=== PATIENT | male | born 1945 | race Caucasian/White ===

== ENCOUNTER 2018-05-27 06:19 | Emergency (ER) | payer MEDICARE, OTHER ==
--- NOTE | 2018-05-27 06:56 | EDM.PDOC ---
<Wendy Torres - Last Filed: 05/27/18 06:51> ED HPI GENERAL MEDICAL PROBLEM - General Chief Complaint: Gastrointestinal Problem Stated Complaint: UNABLE TO USE THE BATHROOM X4 DAYS [phone] Time Seen by Provider: 05/27/18 06:45 Source of Information: Reports: Patient History Limitations: Reports: No Limitations - History of Present Illness INITIAL COMMENTS - FREE TEXT/NARRATIVE: C/O frequent urination in small amounts, No BM since last Wednesday. Mild discomfort and bloating. no hx constipation. Hx back injury lumbar 2008, intermittent sharp pain johnathan lumbar area but no change from usual. No fever chills. Decreased appetite, no vomiting. Lower Back Pain Score (Numeric/FACES): 4 - Related Data Allergies Allergy/AdvReac Type Severity Reaction Status Date / Time bacitracin Allergy Blisters Verified 05/27/18 06:26 neomycin Allergy Blisters Verified 05/27/18 06:26 [From Neosporin ([id number])] polymyxin B Allergy Blisters Verified 05/27/18 06:26 [From Neosporin ([id number])] [id number]-Gzw Reductase Allergy Leg Cramps Verified 05/27/18 06:26 Inhibitor Home Meds: Home Meds Levothyroxine 75 mcg PO ACBREAKFAST 05/27/18 [History] Past Medical History Other Cardiovascular History: stents in arteries in legs Musculoskeletal History: Reports: Back Pain, Chronic - Past Surgical History Musculoskeletal Surgical History: Reports: Other (See Below) Other Musculoskeletal Surgeries/Procedures:: back surgery Social & Family History - Tobacco Use Smoking Status *Q: Never Smoker Second Hand Smoke Exposure: No - Recreational Drug Use Recreational Drug Use: No ED ROS GENERAL - Review of Systems Review Of Systems: ROS reveals no pertinent complaints other than HPI. ED EXAM, GI/ABD - Physical Exam Exam: See Below Exam Limited By: No Limitations General Appearance: Alert, No Apparent Distress, Anxious Ears: Normal External Exam Nose: Normal Inspection Throat/Mouth: Normal Voice Head: Atraumatic, Normocephalic Neck: Full Range of Motion Respiratory/Chest: No Respiratory Distress, Lungs Clear, Normal Breath Sounds Cardiovascular: Normal Peripheral Pulses, Regular Rate, Rhythm GI/Abdominal Exam: Tender (mild ROQ with palpation), Abnormal Bowel Sounds ( hypoactive). No: Guarding Back Exam: Normal Inspection, Full Range of Motion, Paraspinal Tenderness. No: Vertebral Tenderness Extremities: Normal Inspection, Non-Tender Neurological: Alert, Oriented, Normal Cognition Psychiatric: Anxious Skin Exam: Warm, Dry Course - Vital Signs Last Recorded V/S: Last Vital Signs Temp 37.7 C 05/27/18 06:22 Pulse 110 H 05/27/18 06:22 Resp 18 05/27/18 06:22 BP 181/77 H 05/27/18 06:22 Pulse Ox 100 05/27/18 06:22 - Orders/Labs/Meds Orders: Active Orders 24 hr Category Date Time Status Enema [RC] ASDIRECTED Care 05/27/18 07:33 Ordered KUB [Abdomen 1V Flat] [CR] Urgent Exams 05/27/18 06:45 Taken CULTURE URINE [RM] Stat Lab 05/27/18 07:56 Ordered Labs: Laboratory Tests 05/27/18 Range/Units 06:34 Urine Color Straw (YELLOW) Urine Appearance Slightly cloudy (CLEAR) Urine pH 5.5 (5.0-9.0) Ur Specific [place] 1.020 (1.005-1.030) Urine Protein Trace H (NEGATIVE) Urine Glucose (UA) Negative (NEGATIVE) Urine Ketones Trace H (NEGATIVE) Urine Occult Blood Negative (NEGATIVE) Urine Nitrite Negative (NEGATIVE) Urine Bilirubin Small H (NEGATIVE) Urine Urobilinogen 0.2 (0.2-1.0) mg/dL Ur Leukocyte Esterase Small H (NEGATIVE) Urine RBC 0-5 /HPF Urine WBC 40-50 H (0-5/HPF) /HPF Ur Epithelial Cells Few /HPF Amorphous Sediment Few (0/HPF) /HPF Urine Bacteria Moderate H (0-FEW/HPF) /HPF Hyaline Casts Few H /LPF Urine Mucus Moderate H /LPF Meds: Medications Discontinued Medications Generic Name Dose Route Start Last Admin Trade Name Freq PRN Reason Stop Dose Admin Amoxicillin/Clavulanate Potassium 1 tab 05/27/18 07:34 05/27/18 07:38 Augmentin 500 Mg\125 Mg PO 05/27/18 07:35 1 tab ONETIME ONE Administration Departure - Departure Disposition: Home, Self-Care 01 Clinical Impression: UTI (urinary tract infection) Qualifiers: Urinary tract infection type: site unspecified Hematuria presence: without hematuria Qualified Code(s): N39.0 - Urinary tract infection, site not specified Constipation Qualifiers: Constipation type: unspecified constipation type Qualified Code(s): K59.00 - Constipation, unspecified - Discharge Information Instructions: Constipation, Adult, Uvmn-[id number], Urinary Tract Infection, Adult , [id number] Forms: ED Department Discharge Care Plan Goals: The patient was advised of the examination, lab and x-ray results during the visit. The patient was given an enema and an oral dose of Augmentin while in the ED. The patient was encouraged to take a dose of Miralax daily for the next 2-3 days and increase his oral fluid intake. The patient was discharged with a script for Augmentin (500/125) to take 1 by mouth 2 times per day for 7 days. If the patient has any additional symptoms or concerns, the patient should follow-up with his primary care facility or return to the emergency department. - My Orders Last 24 Hours: My Active Orders 05/27/18 07:33 Enema [RC] ASDIRECTED 05/27/18 07:56 CULTURE URINE [RM] Stat - Assessment/Plan Last 24 Hours: My Active Orders 05/27/18 07:33 Enema [RC] ASDIRECTED 05/27/18 07:56 CULTURE URINE [RM] Stat <Kirit Clark - Last Filed: 05/27/18 08:16> ED HPI GENERAL MEDICAL PROBLEM - History of Present Illness Duration: Day(s):, Constant, Getting Worse Location: Reports: Abdomen (lower abdominl pain and cramping), Other (frequent urination) Quality: Reports: Ache, Dull Severity: Moderate Worsens with: Reports: None Context: Reports: Other Associated Symptoms: Reports: No Other Symptoms Course - Re-Assessments/Exams Free Text/Narrative Re-Assessment/Exam: 05/27/18 07:40 Patient care accepted due to change of shift. Records reviewed. Departure - Departure Time of Disposition: 08:16 Condition: Fair - Discharge Information *PRESCRIPTION DRUG MONITORING PROGRAM REVIEWED*: Not Applicable *COPY OF PRESCRIPTION DRUG MONITORING REPORT IN PATIENT RICHIE: Not Applicable
[2018-05-27] MEDS ORDERED: Amoxicillin/Clavulanate K 500-125 MG Tab PO ONE (07:34)
== END 2018-05-27 08:41 | disposition home or self-care (01) ==
LOC: DL.ED 06:19
DX: N39.0 Urinary tract infection, site not specified (principal); K59.00 Constipation, unspecified; Z88.1 Allergy status to other antibiotic agents; Z88.8 Allergy status to other drugs, medicaments and biological substances
CPT/HCPCS: 74018; 81001; 87086; 99284; A9270; 87088; 87186; 99283